=== PATIENT | female | born 1965 | race Caucasian/White ===

== ENCOUNTER 2018-05-12 11:14 | Emergency (ER) | END 2018-05-12 13:40 | disposition home or self-care (01) ==

== ENCOUNTER 2018-08-15 17:30 | Emergency (ER) | END 2018-08-15 20:51 | disposition home or self-care (01) ==

== ENCOUNTER 2019-06-07 17:27 | Emergency (ER) | payer OTHER ==
[~2019-06-07] VITALS: Ht 147.3 cm; Wt 80.2 kg
[~2019-06-07 17:27] MED LIST: ACET500C5 PO; ALPR0.5T PO; ASPI-817 PO; BEN25 PO; IBUP-1542 PO; INSU100I12 SQ; LEVEM SC; SIMV20TA PO; SITA100T11 PO; TRAM50TA2 PO
[2019-06-07 17:34] VITALS: Ht 147.3 cm; Wt 80.2 kg
[2019-06-07 20:08] VITALS: BP 131/73; PULSE 72; RESP 16
== END 2019-06-07 20:25 | disposition home or self-care (01) ==
LOC: FTE 17:27
DX: R51 Headache (principal); E11.9 Type 2 diabetes mellitus without complications; I10 Essential (primary) hypertension; Z79.4 Long term (current) use of insulin; Z79.82 Long term (current) use of aspirin
CPT/HCPCS: 81025; 87880; 93005; 96372; J1885; Z7502